=== PATIENT | female | born 1975 | race Caucasian/White ===

== ENCOUNTER 2017-05-07 03:07 | Emergency (ER) | payer MEDICAID ==
[~2017-05-07] VITALS: Ht 170.2 cm; Wt 86.2 kg
[2017-05-07 03:11] VITALS: BP 128/91
[2017-05-07] MEDS ORDERED: FAMOTIDINE (20 MG) 20 MG TABLET ONE (03:48)
[2017-05-07] MEDS ORDERED: MAG HYDROX/AL HYDROX/SIMETH 30 ML UDC ONE (03:48)
[2017-05-07] MEDS ORDERED: FAMOTIDINE (20 MG) 20 MG TABLET PO ONE (04:00)
[2017-05-07] MEDS ORDERED: MAG HYDROX/AL HYDROX/SIMETH 30 ML UDC PO ONE (04:00)
== END 2017-05-07 04:08 | disposition home or self-care (01) ==
LOC: ER 03:10
DX: K21.9 Gastro-esophageal reflux disease without esophagitis (principal); R13.10 Dysphagia, unspecified; F31.9 Bipolar disorder, unspecified; K46.9 Unspecified abdominal hernia without obstruction or gangrene; F25.9 Schizoaffective disorder, unspecified
CPT/HCPCS: 99283; A4606; Z7610

== ENCOUNTER 2017-05-09 01:28 | Emergency (ER) | payer MEDICAID ==
[~2017-05-09] VITALS: Ht 170.2 cm; Wt 86.2 kg
--- NOTE | 2017-05-09 01:45 | NUR ---
TO BED 2 A 41 YO FEMALE BIBSELF WITH C/O CLOUDY/ BURNING WITH URINATION X 1 DAY; ACCOMPANIED WITH LOWER ABDOMINAL PAIN. AFEBRILE. NAD NOTED. VSS. AMBULATORY WITH STEADY GAIT. GOWNED. COMFORT MEASURES RENDERED.
--- NOTE | 2017-05-09 01:49 | NUR ---
Dr Hawthorne at bedside to eval.
[2017-05-09 02:26] LABS: APPEARANCE,URINE CLOUDY (CLEAR); BILIRUBIN,URINE NEGATIVE (NEGATIVE); BLOOD, URINE NEGATIVE Ery/uL (NEGATIVE); COLOR,URINE YELLOW (YELLOW); KETONES,URINE NEGATIVE (NEGATIVE); LEUKOCYTE ESTERASE ,URINE NEGATIVE (NEGATIVE); NITRITE, URINE NEGATIVE (NEGATIVE); PH,URINE 7.5 (5.0-8.0); PROTEIN,URINE NEGATIVE (NEGATIVE); UGLUCOSE NEGATIVE (NEGATIVE); UROBILINOGEN,URINE 0.2 EU/dL (0.2)
[2017-05-09 02:34] LABS: BACTERIA,URINE None seen /HPF (None Seen); RBC,URINE NONE SEEN /HPF (0-2); SQUAMOUS EPITHELIAL CELL,UR Rare /HPF (None Seen); URINE AMORPHOUS URATE Many /HPF (None Seen); WBC,URINE NONE SEEN /HPF (0-3)
[2017-05-09 03:00] VITALS: BP 122/75
== END 2017-05-09 03:00 | disposition home or self-care (01) ==
LOC: ER 01:28
DX: Z00.8 Encounter for other general examination (principal); K21.9 Gastro-esophageal reflux disease without esophagitis; K46.9 Unspecified abdominal hernia without obstruction or gangrene; F41.9 Anxiety disorder, unspecified
CPT/HCPCS: 81001; 87086; 99283; A4606; Z7610; 81000-TC

== ENCOUNTER 2021-02-07 14:56 | Emergency (ER) | payer MEDICAID ==
[~2021-02-07] VITALS: Ht 167.6 cm; Wt 99.8 kg
[2021-02-07 16:00] VITALS: BP 133/90
[2021-02-07] MEDS ORDERED: AZIT250T PO (16:09)
--- NOTE | 2021-02-07 16:22 | NUR ---
Patient discharged to home in stable condition. Written and verbal after care instructions given. Patient verbalizes understanding of instruction.
== END 2021-02-07 16:23 | disposition home or self-care (01) ==
LOC: ER 14:59
DX: J40 Bronchitis, not specified as acute or chronic (principal); K21.9 Gastro-esophageal reflux disease without esophagitis; F32.9 Major depressive disorder, single episode, unspecified; F20.9 Schizophrenia, unspecified; Z98.890 Other specified postprocedural states; Z60.2 Problems related to living alone

== ENCOUNTER 2021-02-09 01:32 | Emergency (ER) | payer MEDICAID ==
[~2021-02-09] VITALS: Ht 167.6 cm; Wt 99.8 kg
[~2021-02-09 01:32] MED LIST: AZIT250T PO
--- NOTE | 2021-02-09 01:32 | NUR ---
C/O INTERMITTENT MIDSTERNAL CP RADIATING TO R CHEST X3 DAYS. PT AAOX4, PT TO BED 10, PLACED ON MONITOR, NOT IN ACUTE DISTRESS, DENIES SOB, PENDING ER PROVIDER JOO
[2021-02-09] MEDS ORDERED: ACETAMINOPHEN ES 500 MG TABLET ONE (02:09)
[2021-02-09] MEDS ORDERED: NITROGLYCERIN PACKET 1 GM PACKET ONE (02:09)
[2021-02-09] MEDS ORDERED: ASPIRIN 81 MG TAB.CHEW ONE (02:10)
[2021-02-09 02:23] LABS: BASOPHILS # (AUTO) 0.1 /CMM (0.0-0.2); BASOPHILS % (AUTO) 0.9 % (0.0-2.0); HEMATOCRIT 41 % (33-45); HEMOGLOBIN 14.1 g/dL (11.5-14.8); LYMPHOCYTES # (AUTO) 2.4 /CMM (0.8-4.8); LYMPHOCYTES % (AUTO) 36.1 % (20.0-44.0); MEAN CORPUSCULAR HGB CONC 34 g/dl (31.0-36.0); MEAN CORPUSCULAR VOLUME 87 fL (82-100); MONOCYTES # (AUTO) 0.7 /CMM (0.1-1.30); MONOCYTES % (AUTO) 9.8 % (2.0-12.0); NEUTROPHILS # (AUTO) 3.3 /CMM (1.8-8.9); NEUTROPHILS % (AUTO) 48.2 % (43.0-81.0); PLATELET COUNT (AUTO) 247 /CMM (150-450); RED BLOOD CELL COUNT(AUTO) 4.78 MIL/uL (4.0-5.2); WHITE BLOOD COUNT (AUTO) 6.8 K/uL (4.3-11.0)
[2021-02-09 02:27] LABS: CALCIUM, SERUM 8.8 mg/dL (8.5-10.1); CARBON DIOXIDE 29 mmol/L (21-32); CHLORIDE 103 mmol/L (98-107); CREATININE 1.1 mg/dL (0.6-1.3); GLUCOSE 91 mg/dL (74-106); POTASSIUM 3.7 mmol/L (3.5-5.1); SODIUM SERUM 140 mmol/L (136-145); UREA NITROGEN, BLOOD 10 mg/dL (7-18)
[2021-02-09] MEDS ORDERED: ACETAMINOPHEN ES 500 MG TABLET PO ONE (02:30)
[2021-02-09] MEDS ORDERED: ASPIRIN 81 MG TAB.CHEW PO ONE (02:30)
[2021-02-09] MEDS ORDERED: NITROGLYCERIN PACKET 1 GM PACKET TD ONE (02:30)
[2021-02-09 02:40] LABS: ALANINE AMINOTRANSFERASE 72 U/L (12-78); ALBUMIN 3.6 g/dL (3.4-5.0); ALKALINE PHOSPHATASE 91 U/L (46-116); ASPARTATE AMINOTRANSFERASE 35 U/L (15-37); BILIRUBIN,DIRECT 0.1 mg/dL (0.0-0.2); BILIRUBIN,TOTAL 0.3 mg/dL (0.2-1.0); NT-PRO BNP 50 pg/mL (0-125); TOTAL PROTEIN, SERUM 7.2 g/dL (6.4-8.2)
--- NOTE | 2021-02-09 04:15 | NUR ---
RPT TROP DUE [address] JAIMES
[2021-02-09] MEDS ORDERED: HYDR-4209 PO (05:39)
--- NOTE | 2021-02-09 06:03 | NUR ---
Patient discharged to home in stable condition. Written and verbal after care instructions given. Patient verbalizes understanding of instruction. IV removed. Catheter intact and site benign. Pressure and 4x4 applied to site. No bleeding noted.
[2021-02-09 06:05] VITALS: BP 109/66
== END 2021-02-09 06:05 | disposition home or self-care (01) ==
LOC: ER 01:33
DX: R07.89 Other chest pain (principal); F25.9 Schizoaffective disorder, unspecified; K21.9 Gastro-esophageal reflux disease without esophagitis; F32.9 Major depressive disorder, single episode, unspecified; Z98.890 Other specified postprocedural states; Z60.2 Problems related to living alone
CPT/HCPCS: 36415; 71045-TC; 80048-TC; 80076-TC; 83880; 84484-TC; 85025-TC

== ENCOUNTER 2021-04-16 06:30 | Emergency (ER) | payer MEDICAID ==
[~2021-04-16] VITALS: Ht 167.6 cm; Wt 97.5 kg
[~2021-04-16 06:30] MED LIST changes: +HYDR-4209 PO
[2021-04-16 06:39] VITALS: BP 135/71
[2021-04-16] MEDS ORDERED: NITR100C6 PO (06:53)
--- NOTE | 2021-04-16 07:15 | NUR ---
BIBS FOR C/O LOWER ABD PAIN AND DYSURIA X 3 DAYS. ALSO REPORTED ON AND OFF DIARRHEA FOR THE PAST 45 DAYS. PATIENT IN BED, AWAKE ALERT AND ORIENTED X4. NO RESPIRATORY DISTRESS NOTED. DENIES ANY PAIN AT THIS TIME.
[2021-04-16 07:27] LABS: BILIRUBIN,URINE NEGATIVE (NEGATIVE); COLOR,URINE YELLOW (YELLOW); LEUKOCYTE ESTERASE ,URINE NEGATIVE (NEGATIVE); NITRITE, URINE NEGATIVE (NEGATIVE); PROTEIN,URINE NEGATIVE (NEGATIVE); UGLUCOSE NEGATIVE (NEGATIVE); UROBILINOGEN,URINE 0.2 EU/dL (0.2)
--- NOTE | 2021-04-16 08:06 | NUR ---
Received discharge orders. Patient discharged to home in stable condition. Written and verbal after care instructions given. Patient verbalizes understanding of instruction.
== END 2021-04-16 08:09 | disposition home or self-care (01) ==
LOC: ER 06:34
DX: N39.0 Urinary tract infection, site not specified (principal); J45.909 Unspecified asthma, uncomplicated; K21.9 Gastro-esophageal reflux disease without esophagitis; F31.9 Bipolar disorder, unspecified; F25.9 Schizoaffective disorder, unspecified; Z98.890 Other specified postprocedural states; Z60.2 Problems related to living alone; Z79.899 Other long term (current) drug therapy
CPT/HCPCS: 87086-TC

== ENCOUNTER 2021-11-15 14:42 | Emergency (ER) | payer MEDICAID ==
[~2021-11-15] VITALS: Ht 167.6 cm; Wt 102.1 kg
[~2021-11-15 14:42] MED LIST changes: +NITR100C6 PO
[2021-11-15 14:57] VITALS: BP 136/88
[2021-11-15] MEDS ORDERED: IBUP-1955 PO (15:36)
[2021-11-15] MEDS ORDERED: OMEP20CA15 PO (15:36)
[2021-11-15] MEDS ORDERED: KETOROLAC TROMETHAMINE 15 MG/ML VIAL ONE ×2 (15:48→15:51)
[2021-11-15] MEDS: KETOROLAC TROMETHAMINE INJ 30 MG/ML VIAL IM ONE (15:50)
--- NOTE | 2021-11-15 15:55 | NUR ---
Patient discharged to home in stable condition. Written and verbal after care instructions given. Patient verbalizes understanding of instruction.
== END 2021-11-15 15:55 | disposition home or self-care (01) ==
LOC: ER 14:42
DX: R51.9 Headache, unspecified (principal); T50.B95A Adverse effect of other viral vaccines, initial encounter; Y92.89 Other specified places as the place of occurrence of the external cause; J45.909 Unspecified asthma, uncomplicated; K21.9 Gastro-esophageal reflux disease without esophagitis; F32.A Depression, unspecified; F20.9 Schizophrenia, unspecified; Z60.2 Problems related to living alone; Z79.891 Long term (current) use of opiate analgesic; Z79.899 Other long term (current) drug therapy
CPT/HCPCS: 96372; 99283; J1885

== ENCOUNTER 2021-12-11 17:56 | Emergency (ER) | payer MEDICAID ==
[~2021-12-11] VITALS: Ht 167.6 cm; Wt 90.7 kg
[~2021-12-11 17:56] MED LIST changes: +IBUP-1955 PO; +OMEP20CA15 PO
--- NOTE | 2021-12-11 18:13 | NUR ---
BIBS C/O COUGH, DIARRHEA, RECTAL PAIN, PAIN WHEN URINATING X2WKS. TO ER BED 7, HOOKED TO MONITOR, CHANGED TO HOSP GOWN, WARM BLANKET PROVIDED. PATIENT AAO x 4. BREATHING EVENA ND UNLABORED. AWAITING MD GE
--- NOTE | 2021-12-11 18:33 | NUR ---
TONIO LIN AT BEDSIDE
[2021-12-11] MEDS ORDERED: CEFTRIAXONE 500 MG VIAL IM ONE (19:00)
--- NOTE | 2021-12-11 19:00 | NUR ---
RAPID INFLUENZA AND RAPID COVID SWAB DONE AND SENT TO LAB
[2021-12-11] MEDS ORDERED: LIDOCAINE /MPF 1% VIAL 5 ML VIAL ONE (19:06)
[2021-12-11] MEDS ORDERED: CEFTRIAXONE 500 MG VIAL ONE (19:06)
--- NOTE | 2021-12-11 19:11 | NUR ---
URINE SAMPLE COLLECTED AND SENT TO LAB
[2021-12-11 20:12] LABS: BILIRUBIN,URINE NEGATIVE (NEGATIVE); COLOR,URINE YELLOW (YELLOW); LEUKOCYTE ESTERASE ,URINE TRACE (NEGATIVE); NITRITE, URINE NEGATIVE (NEGATIVE); PROTEIN,URINE NEGATIVE (NEGATIVE); UGLUCOSE NEGATIVE (NEGATIVE); UROBILINOGEN,URINE 0.2 EU/dL (0.2)
[2021-12-11 20:22] LABS: BACTERIA,URINE None seen /HPF (None Seen); RBC,URINE 0-2 /HPF (0-2); SQUAMOUS EPITHELIAL CELL,UR 0-2 /HPF (None Seen)
[2021-12-11] MEDS ORDERED: DOXY100C2 PO (20:55)
[2021-12-11 21:15] VITALS: BP 130/67
--- NOTE | 2021-12-11 21:15 | NUR ---
DISCHAGE PAPERWOR GIVEN TO PT. PT LEFT IN STABLE CONDITION
== END 2021-12-11 21:15 | disposition home or self-care (01) ==
LOC: ER 18:02
DX: K62.89 Other specified diseases of anus and rectum (principal); R19.7 Diarrhea, unspecified; R30.0 Dysuria; R05.9 Cough, unspecified; Z20.822 Contact with and (suspected) exposure to COVID-19; R82.81 Pyuria; F31.9 Bipolar disorder, unspecified; F25.9 Schizoaffective disorder, unspecified; J45.909 Unspecified asthma, uncomplicated; K21.9 Gastro-esophageal reflux disease without esophagitis; Z79.899 Other long term (current) drug therapy; I10 Essential (primary) hypertension; R00.0 Tachycardia, unspecified
CPT/HCPCS: 71045; 81001; 87426; 87491; 87591; 87804; 96372; 99284; C9803; J0696; J3490

== ENCOUNTER 2022-09-17 14:41 | Emergency (ER) | payer MEDICAID ==
[~2022-09-17] VITALS: Ht 167.6 cm; Wt 102.1 kg
[~2022-09-17 14:41] MED LIST changes: +DOXY100C2 PO
--- NOTE | 2022-09-17 15:08 | NUR ---
PT WALKED IN TO ER C/O NAUSEA, VOMITING AND DIARRHEA X 4 DAYS. PT AMBULATED TO BED WITH STEADY GAIT, AAOX4. VSS.
[2022-09-17] MEDS ORDERED: ONDA4TAB5 PO (15:28)
[2022-09-17] MEDS ORDERED: LOPE2CAP40 PO (15:28)
[2022-09-17] MEDS ORDERED: SULF1TAB48 PO (15:28)
--- NOTE | 2022-09-17 15:38 | NUR ---
Patient discharged to home in stable condition. Written and verbal after care instructions given. Patient verbalizes understanding of instruction.
[2022-09-17 15:41] VITALS: BP 120/80
== END 2022-09-17 15:42 | disposition home or self-care (01) ==
LOC: ER 15:08
DX: R19.7 Diarrhea, unspecified (principal); J45.909 Unspecified asthma, uncomplicated; I27.20 Pulmonary hypertension, unspecified; K21.9 Gastro-esophageal reflux disease without esophagitis; F32.A Depression, unspecified; Z60.2 Problems related to living alone; Z79.899 Other long term (current) drug therapy; Z98.890 Other specified postprocedural states

== ENCOUNTER 2022-09-21 23:37 | Emergency (ER) | payer MEDICAID ==
[~2022-09-21] VITALS: Ht 165.1 cm; Wt 104.3 kg
[~2022-09-21 23:37] MED LIST changes: +LOPE2CAP40 PO; +ONDA4TAB5 PO; +SULF1TAB48 PO
--- NOTE | 2022-09-22 00:18 | NUR ---
BIBSELF FROM HOME C/O GUM PAIN S/P 2 TOOTH EXTRACTIONS 2 DAYS AGO.
[2022-09-22 00:30] VITALS: BP 158/87
--- NOTE | 2022-09-22 00:31 | NUR ---
Patient discharged to home in stable condition. Written and verbal after care instructions given. Patient verbalizes understanding of instruction.
== END 2022-09-22 00:31 | disposition home or self-care (01) ==
LOC: ER 23:40
DX: K08.89 Other specified disorders of teeth and supporting structures (principal); Z71.1 Person with feared health complaint in whom no diagnosis is made; Z76.0 Encounter for issue of repeat prescription; J45.909 Unspecified asthma, uncomplicated; I27.20 Pulmonary hypertension, unspecified; K21.9 Gastro-esophageal reflux disease without esophagitis; Z60.2 Problems related to living alone; Z79.899 Other long term (current) drug therapy

== ENCOUNTER 2022-10-09 09:58 | Emergency (ER) | payer MEDICAID ==
[~2022-10-09] VITALS: Ht 167.6 cm; Wt 104.3 kg
[2022-10-09 10:06] VITALS: BP 137/92
--- NOTE | 2022-10-09 10:14 | NUR ---
C/O COUGH AND CONGESTION X 3 WEEKS. DENIES SOB. PT BREATHING EVEN AND UNLABORED. VSS. AWAITING MD ORDERS.
[2022-10-09] MEDS ORDERED: LOPE2CAP PO ×2 (10:54→10:55)
[2022-10-09] MEDS ORDERED: DICYCLOMINE HCL 10 MG CAPSULE PO ONE ×2 (10:59→11:00)
[2022-10-09] MEDS ORDERED: ONDANSETRON 4 MG TAB.RAPDIS ONE (10:59)
[2022-10-09] MEDS ORDERED: ONDANSETRON 4 MG TAB.RAPDIS PO ONE (11:00)
== END 2022-10-09 11:17 | disposition home or self-care (01) ==
LOC: ER 11:15
DX: J06.9 Acute upper respiratory infection, unspecified (principal); R19.7 Diarrhea, unspecified; R51.9 Headache, unspecified; J45.909 Unspecified asthma, uncomplicated; I27.20 Pulmonary hypertension, unspecified; K21.9 Gastro-esophageal reflux disease without esophagitis; F32.A Depression, unspecified; Z60.2 Problems related to living alone; Z79.899 Other long term (current) drug therapy
CPT/HCPCS: 99283; Q0162